=== PATIENT | male | born 1990 | race Caucasian/White ===

== ENCOUNTER 2020-06-09 14:06 | Emergency (ER) | payer OTHER, SELFPAY ==
[2020-06-09] VITALS (8 sets, daily range): BP systolic 100–123; BP diastolic 55–77; PULSE 57–84; RESP 16; TEMP 36.8; O2SAT 97–100
--- NOTE | ~2020-06-09 | CT_ITS ---
EXAMINATION: CT brain wo con DATE: 06/09/2020 15:02 INDICATION: Seizure TECHNIQUE: Computed tomography (CT) of the head was performed without intravenous contrast. The mA wa s adjusted according to patient size. Iterative reconstruction technique was employed. Exam dose: 60 5.33 mGy-cm total exam DLP. COMPARISON: None FINDINGS: No intracranial mass lesion or hemorrhage or cerebrovascular accident. No midline shift or mass effect. Normal clemons-white matter differentiation. Normal ventricular size. No subdural or epidur al hematoma. No orbital mass lesion. No fracture or bone destruction of the cranial vault. Included paranasal sinuses and mastoid air cell s are normally developed and aerated. The mastoid air cells and included paranasal sinuses are normally developed and aerated. IMPRESSION: No significant abnormality Reviewed, dictated and finalized at [facility]. Reviewed, dictated and finalized at [facility]. IMPRESSION: No significant abnormality
--- NOTE | ~2020-06-09 | XR_ITS ---
EXAMINATION: XR chest 2V 06/09/2020 16:03 INDICATION: Seizure PROCEDURE: 2 view chest COMPARISON: No prior studies for comparison. FINDINGS: The lungs are clear. The cardiomediastinal silhouette is within normal limits. There are no pleural effusions. There is no pneumothorax suspected. IMPRESSION: 1: NO ACUTE CARDIOPULMONARY DISEASE. Reviewed, dictated and finalized at [facility].
--- NOTE | 2020-06-09 14:27 | ECG_ITS ---
Measurements Intervals Andreas Rate: 62 P: 50 GA: 149 QRS: 72 QRSD: 88 T: 55 QT: 391 QTc: 398 Interpretive Statements SINUS RHYTHM BASELINE WANDER- V3 NORMAL ECG Electronically Signed On 06-09-2020 15:51:02 CDT by Maximus Bryson D.O.
[2020-06-09 15:07] LABS: Basophils Absolute Auto 0.1 K/mm3 (0.0-0.1); Eosinophils Absolute Auto 0.1 K/mm3 (0-0.3); Eosinophils Percent Auto 0.9 % (0-4.4); Hematocrit 40.3 % (42.0-52.0); Hemoglobin 13.8 g/dL (14.0-18.0); Immature Granulocyte Absolute 0.01 K/mm3 (0.00-0.031); Immature Granulocyte Percent A 0.1 % (0-0.5); Lymphocytes Absolute Auto 2.33 K/mm3 (0.9-3.2); Lymphocytes Percent Auto 34.5 % (18.3-44.2); Mean Corpuscular HGB Conc 34.2 g/dl (32-36); Mean Corpuscular Hemoglobin 31.2 pg (26-34); Mean Platelet Volume 9.6 fl (7.4-10.4); Monocytes Absolute Auto 0.6 K/mm3 (0.1-0.6); Monocytes Percent Auto 8.3 % (2.6-8.5); Neutrophils Absolute Auto 3.7 K/mm3 (1.3-6.7); Neutrophils Percent Auto 55.2 % (45.5-73.1); Platelet Count Result 228 k/mm3 (150-375); Red Blood Count 4.43 M/mm3 (4.6-6.20); White Blood Count 6.8 K/mm3 (4.5-10.0)
--- NOTE | 2020-06-09 15:14 | ED.SEIZURE ---
HPI - Seizure General Chief Complaint: Seizure Stated Complaint: SEIZURE Time Seen by Provider: 06/09/20 14:27 History of Present Illness HPI Narrative: Patient is a 30-year-old male who presents ER with a seizure. He was at lunch with people from work when he was standing get up from the jaramillo and collapsed to the ground and had seizure. He then awoke and did not know where he was. He tried to stand up and then collapsed again and had a 1 minute long seizure. After that he was confused for 2 to 3 minutes. He did not have release of urine or stool. He did not bite his tongue. No history of seizures previously. He did have a janes at lunch. Reports last night she had a little bit of marijuana. Reports that during the day has had several caffeinated beverages and some water. He did eat breakfast. Friend who is with the patient reports tight rigid shaking to the upper and lower extremities and foaming at the mouth during the seizure. Related Data Allergies Allergy/AdvReac Type Severity Reaction Status Date / Time Cephalosporins Allergy Mild unkown Verified 06/09/20 18:17 Review of Systems Review of Systems: All systems reviewed & are unremarkable except as noted in HPI and below Constitutional: Constitutional: Denies chills, Denies fever(s) and Denies weakness Eyes: Eyes: Denies change in vision and Denies photophobia ENT: Denies nasal congestion and Denies sore throat Cardiovascular: Cardiovascular: Denies chest pain and Denies radiating jaw, neck or arm pain Respiratory: Respiratory: Denies cough, Denies dyspnea and Denies wheezing Neurologic: Denies headache(s), Denies focal weakness and Denies numbness Comments: Seizure PMFSH Past Medical History Medical History (Updated 06/09/20 @ 18:17 by Mannie Shearer MD) Healthy adult male Surgical History Surgical History (Updated 06/09/20 @ 15:16 by Mannie Shearer MD) No history of previous surgery Social History Social History (Updated 06/09/20 @ 15:16 by Mannie Shearer MD) Alcohol intake: current Substance use type: marijuana Exam Narrative: Exam Narrative: GENERAL: Well-appearing, well-nourished, and in no acute distress. HEAD: Normocephalic, atraumatic. EYES: PERRL and EOMI. ENT: Mucous membranes moist. No trauma to the teeth or tongue. CHEST: Clear to auscultation. No respiratory distress. HEART: Regular rate and rhythm. Normal peripheral pulses. ABDOMEN: Soft, nontender, nondistended. EXTREMITIES: Normal range of motion. No edema. SKIN: Warm, dry, no rash. NEURO: No focal deficits. Alert and oriented x3. Course Course Emergency Course: Blood pressure is borderline for orthostasis, you are infected but patient denies any symptoms, denies sexual promiscuity as he is and has had no urethral discharge. I have discussed Dr. Aceves, patient should call to schedule follow-up appointment and obtain an outpatient EEG. Vital Signs Vital signs: Vital Signs Temperature 98.2 F 06/09/20 14:10 Pulse Rate 64 06/09/20 14:10 Respiratory Rate 16 06/09/20 14:10 Blood Pressure 116/70 06/09/20 14:10 Pulse Oximetry 100 06/09/20 14:10 Temperature 98.2 F 06/09/20 14:10 Pulse Rate 84 06/09/20 15:09 Respiratory Rate 16 06/09/20 14:10 Blood Pressure 117/71 06/09/20 15:09 Pulse Oximetry 100 06/09/20 14:10 MDM - Seizure Lab Data Result diagrams: 06/09/20 14:55 06/09/20 14:55 Labs: Lab Results 06/09/20 06/09/20 06/09/20 Range/Units 14:55 14:55 14:55 WBC 6.8 (4.5-10.0) K/mm3 RBC 4.43 L (4.6-6.20) M/mm3 Hgb 13.8 L (14.0-18.0) g/dL Hct 40.3 L (42.0-52.0) % MCV 91.0 (80-100) fl MCH 31.2 (26-34) pg MCHC 34.2 (32-36) g/dl RDW 13.0 (11.5-14.5) % Plt Count 228 (150-375) k/mm3 MPV 9.6 (7.4-10.4) fl Immature Gran % (Auto) 0.1 (0-0.5) % Neut % (Auto) 55.2 (45.5-73.1) % Lymph % (Auto) 34.5 (18.3-44.2)
[2020-06-09 15:21] LABS: Ethanol < 10 mg/dL (<10)
[2020-06-09 15:48] LABS: Add Urine Microscopic? YES; Appearance Urine Turbid (Clear); Bacteria Urine 1+ /hpf; Bilirubin Urine Negative (Negative); Blood Urine 2+ (Negative); Color Urine Yellow (Yellow); Glucose Urine UA Negative (Negative); Ketones Urine Negative (Negative); Leukocyte Esterase Ur 2+ LEU/UL (Negative); Nitrate Urine Positive (Negative); Protein Urine 2+ mg/dL (Negative); RBC Urine 51-75 /hpf (0-2); Specific Grav Ur 1.019 (1.001-1.035); Squamous Epithelial Cell Urine Occasional /hpf (Few); Urobilinogen Urine Negative mg/dL (<2.0); WBC Urine >75 /hpf
[2020-06-09 16:02] LABS: Blood Urea Nitrogen 19 mg/dL (9-20); Carbon Dioxide 27 mmol/L (22-30); Chloride 103 mmol/L (98-107); Estimated CRCL calculation 85 ml/min; Estimated Glomerular Filt Rate > 60; Glucose 113 mg/dL (75-110); Potassium 3.5 mmol/L (3.4-5.0); Sodium 139 mmol/L (137-145)
[2020-06-09 16:11] LABS: Amphetamine Screen Urine Negative (Negative); Barbiturate Screen Urine Negative (Negative); Benzodiazepines Screen Urine Negative (Negative); Cannabinoid Screen Urine Positive (Negative); Cocaine Screen Urine Negative (Negative); Methadone Screen Urine Negative (Negative); Opiate Screen Urine Negative (Negative); Phencyclidine Screen Urine Negative (Negative)
== END 2020-06-09 19:00 | disposition home or self-care (01) ==
PROVIDERS: Emergency Provider Emergency Medicine
DX: R56.9 Unspecified convulsions (principal); N39.0 Urinary tract infection, site not specified
CPT/HCPCS: 36415; 70450; 71046; 80048; 80307; 81001; 85025; 87077; 87086; 87088; 87186; 93005; 99284